=== PATIENT | male | born 1985 | race Caucasian/White ===

== ENCOUNTER 2017-07-07 13:00 | Emergency (ER) | payer SELFPAY ==
[~2017-07-07] VITALS: Ht 172.7 cm; Wt 65.0 kg
[2017-07-07 13:01] VITALS: BP 169/100; PULSE 55; RESP 16; TEMP 97.7; O2SAT 100
--- NOTE | 2017-07-07 14:49 | PD ---
HPI Chief Complaint: Abdominal Pain Time Seen by Provider: 14:21 Travel History International Travel<30 days: Yes Contact w/Intl Traveler<30days: Yes Name of Country Traveled to: [place], [place], [place] Traveled to known affect area: Yes History of Present Illness HPI 31-year-old male presents to the ED for evaluation of intermittent left upper quadrant abdominal pain. Patient can identify no alleviating or exacerbating factors. He states that he is currently asymptomatic. He denies fevers, chills , chest pain, palpitation, shortness of breath, cough, nausea, vomiting, dysuria , hematuria, changes in bowel habits, melena, hematochezia, back pain. He can identify no acute injury to the area. He states that he does a physical job that requires a lot of lifting and stretching. He denies illicit drug use. Endorses occasional alcohol use. He smokes 1 pack per day. No treatment attempt at home. PFSH Social History Tobacco Use: Yes Allergies-Medications (Allergen,Severity, Reaction): Coded Allergies: No Known Allergies (Unverified , 07/07/17) Review of Systems Except as stated in HPI: all other systems reviewed are Neg Physical Exam Narrative GENERAL: Well-nourished, well-developed thin, nontoxic-appearing white male in no acute distress. SKIN: Focused skin assessment warm/dry. HEAD: Normocephalic. EYES: No scleral icterus. No injection or drainage. NECK: Supple, trachea midline. No JVD or lymphadenopathy. CARDIOVASCULAR: Regular rate and rhythm without murmurs, gallops, or rubs. RESPIRATORY: Breath sounds clear and equal bilaterally. No accessory muscle use. GASTROINTESTINAL: Abdomen soft, non-tender, nondistended. No palpable masses. No hepatosplenomegaly. Active bowel sounds. MUSCULOSKELETAL: No cyanosis, or edema. BACK: Nontender without obvious deformity. No CVA tenderness. Data Data Last Documented VS Vital Signs Date Time Temp Pulse Resp B/P (MAP) Pulse Ox O2 Delivery O2 Flow Rate FiO2 07/07/17 13:01 97.7 55 16 169/100 (123) 100 Orders Orders Complete Blood Count With Diff (07/07/17 14:41) Basic Metabolic Panel (Bmp) (07/07/17 14:41) Lipase (07/07/17 14:41) Urinalysis - C+S If Indicated (07/07/17 14:41) Labs Laboratory Tests Test 07/07/17 14:45 White Blood Count 6.4 TH/MM3 Red Blood Count 4.99 MIL/MM3 Hemoglobin 16.1 GM/DL Hematocrit 46.0 % Mean Corpuscular Volume 92.2 FL Mean Corpuscular Hemoglobin 32.3 PG Mean Corpuscular Hemoglobin Concent 35.0 % Red Cell Distribution Width 13.3 % Platelet Count 199 TH/MM3 Mean Platelet Volume 8.1 FL Neutrophils (%) (Auto) 56.2 % Lymphocytes (%) (Auto) 32.0 % Monocytes (%) (Auto) 8.8 % Eosinophils (%) (Auto) 2.6 % Basophils (%) (Auto) 0.4 % Neutrophils # (Auto) 3.6 TH/MM3 Lymphocytes # (Auto) 2.0 TH/MM3 Monocytes # (Auto) 0.6 TH/MM3 Eosinophils # (Auto) 0.2 TH/MM3 Basophils # (Auto) 0.0 TH/MM3 CBC Comment DIFF FINAL Differential Comment Urine Color COLORLESS Urine Turbidity CLEAR Urine pH 6.0 Urine Specific [place] 1.003 Urine Protein NEG mg/dL Urine Glucose (UA) NEG mg/dL Urine Ketones NEG mg/dL Urine Occult Blood NEG Urine Nitrite NEG Urine Bilirubin NEG Urine Urobilinogen LESS THAN 2.0 MG/DL Urine Leukocyte Esterase NEG Urine RBC 1 /hpf Urine WBC LESS THAN 1 /hpf Microscopic Urinalysis Comment CULT NOT INDICATED Blood Urea Nitrogen 8 MG/DL Creatinine 1.09 MG/DL Random Glucose 82 MG/DL Calcium Level 9.1 MG/DL Sodium Level 142 MEQ/L Potassium Level 4.0 MEQ/L Chloride Level 106 MEQ/L Carbon Dioxide Level 33.2 MEQ/L Anion Gap 3 MEQ/L Estimat Glomerular Filtration Rate 79 ML/MIN Lipase 99 U/L [facility] Medical Decision Making Medical Screen Exam Complete: Yes Emergency Medical Condition: Yes Differential Diagnosis Musculoskeletal pain versus pancreatitis versus nephroureterolithiasis versus other Narrative Course 31-year-old male presents to the ED for evaluation of intermittent left upper quadrant abdominal pain. Patient is asymptomatic on presentation. Last episode 2 days ago. He identified no alleviating or exacerbating factors for this pain. No other symptoms. Vitals reviewed. On exam the patient is thin, nontoxic appearing , no pain elicited with deep palpation of the left upper quadrant. CVA tenderness. No abnormalities of CBC, CMP or UA. Vital information to follow up with his clinic. He is stable and discharged home. Diagnosis Primary Impression: Abdominal pain, chronic, left upper quadrant Referrals: [facility] Additional Instructions: Rest, hydrate. Return to normal, gentle activity as tolerated. Follow-up with the [place] [facility] to establish primary care. Return to the ED for any urgent or emergent medical condition. Disposition: 01 DISCHARGE HOME Condition: Stable Serina Torres Jul 07, 2017 14:49
[2017-07-07 15:14] LABS: AUTOMATED NEUTROPHIL # 3.6 TH/MM3 (1.8-7.7); BASOPHIL % 0.4 % (0.0-2.0); EOSINOPHIL # 0.2 TH/MM3 (0-0.4); EOSINOPHIL % 2.6 % (0.0-4.0); HEMOGLOBIN 16.1 GM/DL (13.0-17.0); MEAN CELL VOLUME 92.2 FL (80.0-100.0); MEAN CORPUSCULAR HEMOGLOBIN 32.3 PG (27.0-34.0); MEAN PLATELET VOLUME 8.1 FL (7.0-11.0); MONO % 8.8 % (0.0-8.0); MONOCYTE # 0.6 TH/MM3 (0-0.9); NEUT % 56.2 % (16.0-70.0); PLATELET COUNT 199 TH/MM3 (150-450); RED BLOOD COUNT 4.99 MIL/MM3 (4.50-5.90); RED CELL DISTRIBUTION WIDTH 13.3 % (11.6-17.2); WHITE BLOOD COUNT 6.4 TH/MM3 (4.0-11.0)
[2017-07-07 15:20] LABS: BILIRUBIN, URINE NEG (NEG); BLOOD, URINE NEG (NEG); GLUCOSE,URINE NEG (NEG); KETONE, URINE NEG (NEG); NITRITE,URINE NEG (NEG); URINE COLOR COLORLESS (YELLW/STRAW); URINE LEUKOCYTE ESTERASE NEG (NEG)
[2017-07-07 15:27] LABS: BICARBONATE 33.2 MEQ/L (21.0-32.0); CALCIUM 9.1 MG/DL (8.5-10.1); CREATININE 1.09 MG/DL (0.60-1.30)
== END 2017-07-07 15:51 | disposition home or self-care (01) ==
LOC: NEPD 13:00
DX: R10.12 Left upper quadrant pain (principal); F17.200 Nicotine dependence, unspecified, uncomplicated
CPT/HCPCS: 80048; 81001; 83690; 85025; 99283

== ENCOUNTER 2017-08-07 05:21 | Emergency (ER) | payer SELFPAY ==
[~2017-08-07] VITALS: Ht 172.7 cm; Wt 60.0 kg
[2017-08-07 05:27] VITALS: BP 136/72; PULSE 140; RESP 16; TEMP 100.4; O2SAT 96
[2017-08-07] MEDS ORDERED: cefTRIAXone INJ 2,000 MG in SODIUM CHLORIDE 0.9% INJ 100 ML IV ONE (05:45)
[2017-08-07] MEDS ORDERED: DEXAMETHASONE SOD PHOS 4 MG/ML VIAL IV PUSH ONE (05:45)
[2017-08-07] MEDS ORDERED: SODIUM CHLOR 0.9% 1000 ML INJ 1,000 ML IV ONE ×2 (05:45→06:15)
[2017-08-07 05:59] VITALS: RESP 20
[2017-08-07 06:05] LABS: AUTOMATED NEUTROPHIL # 19.7 TH/MM3 (1.8-7.7); BASOPHIL # 0.1 TH/MM3 (0-0.2); BASOPHIL % 0.2 % (0.0-2.0); EOSINOPHIL # 0.1 TH/MM3 (0-0.4); EOSINOPHIL % 0.4 % (0.0-4.0); HEMATOCRIT 45.4 % (39.0-51.0); LYMPH % 7.1 % (9.0-44.0); LYMPHOCYTE # 1.7 TH/MM3 (1.0-4.8); MEAN CELL VOLUME 87.1 FL (80.0-100.0); MEAN CORPUSCULAR HEMOGLOBIN 30.7 PG (27.0-34.0); MEAN CORPUSCULAR HGB CONC 35.2 % (32.0-36.0); MEAN PLATELET VOLUME 7.3 FL (7.0-11.0); MONO % 8.4 % (0.0-8.0); NEUT % 83.9 % (16.0-70.0); PLATELET COUNT 316 TH/MM3 (150-450); RED BLOOD COUNT 5.21 MIL/MM3 (4.50-5.90); RED CELL DISTRIBUTION WIDTH 12.1 % (11.6-17.2); WHITE BLOOD COUNT 23.5 TH/MM3 (4.0-11.0)
[2017-08-07 06:11] LABS: INTERNATIONAL NORMALIZED RATIO 1.3 RATIO; PROTHROMBIN TIME - PATIENT 12.8 SEC (9.8-11.6)
[2017-08-07 06:30] LABS: MONOSCREEN NEG (NEG)
[2017-08-07 06:37] LABS: ALT (GPT) 17 U/L (12-78)
[2017-08-07 06:39] LABS: ALKALINE PHOSPHATASE 87 U/L (45-117); TOTAL BILIRUBIN ADULT 0.8 MG/DL (0.2-1.0); TOTAL PROTEIN 8.7 GM/DL (6.4-8.2)
[2017-08-07 06:44] LABS: ALBUMIN 3.6 GM/DL (3.4-5.0); AST (GOT) 19 U/L (15-37); BICARBONATE 29.5 MEQ/L (21.0-32.0); BLOOD UREA NITROGEN 17 MG/DL (7-18); CALCIUM 9.6 MG/DL (8.5-10.1); CHLORIDE 98 MEQ/L (98-107); CREATININE 1.16 MG/DL (0.60-1.30); GLOMERULAR FILTRATION RATE 73 ML/MIN (>89); GLUCOSE,RANDOM 123 MG/DL (74-106); MAGNESIUM 2.2 MG/DL (1.5-2.5); SODIUM (NA) 137 MEQ/L (136-145)
--- NOTE | 2017-08-07 07:04 | PD ---
HPI Chief Complaint: ENT Complaint Time Seen by Provider: 05:37 Travel History International Travel<30 days: No Contact w/Intl Traveler<30days: No Traveled to known affect area: No History of Present Illness HPI The patient is a 31 year old male who presents to the [facility] emergency department with a history of a sore throat that he reports began 3 days ago. The patient reports that the sore throat became much worse than felt like his throat with closing up on yesterday. He reports that he has had a fever with a T-max of 101. He reports that he has difficulty swallowing solids an liquids. The patient reports that he took Robitussin without relief. He reports having congestion in the posterior throat, however otherwise no chest congestion, cough other than with throat clearing, nasal congestion or rhinorrhea. He reports that he has had problems with tonsillitis in the past. On review of systems otherwise, the patient denies having any chest pain, shortness of breath , abdominal pain, vomiting, diarrhea, urinary symptoms, or neurologic symptoms. Patient reports having anterior neck pain with swelling of the glans of the left side of the neck. [facility] Past Medical History Narrative Medical The patient's past medical history as reportedly none. Medical History: Denies Significant Hx Past Surgical History Surgical History: No Previous Surgery Social History Alcohol Use: Yes (Occasionally) Tobacco Use: Yes (One half pack per day) Substance Use: No Allergies-Medications (Allergen,Severity, Reaction): Coded Allergies: No Known Allergies (Unverified , 08/07/17) Reported Meds & Prescriptions Reported Meds & Active Scripts Active No Active Prescriptions or Reported Medications Review of Systems Except as stated in HPI: all other systems reviewed are Neg General / Constitutional: Positive: Fever Eyes: No: Visual changes HENT: Positive: Sore Throat, Congestion, Neck Pain (Anterior left neck pain), No: Headaches Cardiovascular: No: Chest Pain or Discomfort Respiratory: No: Shortness of Breath Gastrointestinal: Positive: Loss of Appetite, No: Nausea, Vomiting, Diarrhea, Abdominal Pain Genitourinary: No: Dysuria Musculoskeletal: No: Pain Skin: No Rash Neurologic: No: Weakness, Focal Abnormalities, Change in Mentation, Slurred Speech, Sensory Disturbance Psychiatric: No: Depression Endocrine: No: Polydipsia Hematologic/Lymphatic: No: Easy Bruising Physical Exam Narrative General: The patient is a well-developed well-nourished male in no acute distress. Head and Neck exam: Head is normocephalic atraumatic. Eyes: EOMI, pupils are equal round and reactive to light. Nose: Midline septum with pink mucous membranes Mouth: Dentition unremarkable. Moist mucus membranes. Posterior oropharynx is erythematous with tonsillar hypertrophy a.m. palatal petechiae noted. Left tonsil's greater than the right on examination in size. Uvula midline. Airway patent. Neck: The patient has left-sided anterior cervical lymphadenopathy greater than the right on examination. The patient's lymph node on the left palpates to be approximately 2-3 cm. No nuchal rigidity. No thyromegaly. Cardiovascular: Sinus tachycardia in the low 100 without murmurs, gallops, or rubs. No pulse deficit to the extremities on simultaneous auscultation in palpation of his radial artery. Lungs: Clear to auscultation bilaterally. No wheezes, rhonchi, or rales. Abdomen: Soft, without tenderness to palpation in all 4 quadrants of the abdomen. No guarding, rebound, or rigidity. Normal bowel sounds are audible. No tenderness on palpation at McBurney's point. Extremities: No clubbing, cyanosis, or edema. 2+ pulses in all 4 extremities. No calf tenderness on palpation. Neurologic Exam: Grossly nonfocal. Skin Exam: No rash noted. Intact skin that is warm and dry. Data Data Last Documented VS Vital Signs Date Time Temp Pulse Resp B/P (MAP) Pulse Ox O2 Delivery O2 Flow Rate FiO2 08/07/17 05:59 20 08/07/17 05:27 100.4 140 96 Orders Orders Strep Culture (Group A) (08/07/17 05:35) Group A Rapid Strep Screen (08/07/17 05:35) Complete Blood Count With Diff (08/07/17 05:44) Comprehensive Metabolic Panel (08/07/17 05:44) Prothrombin Time / Inr (Pt) (08/07/17 05:44) Act Partial Throm Time (Ptt) (08/07/17 05:44) Magnesium (Mg) (08/07/17 05:44) Monoscreen (08/07/17 05:44) Iv Access Insert/Monitor (08/07/17 05:44) Ecg Monitoring (08/07/17 05:44) Oximetry (08/07/17 05:44) Sodium Chlor 0.9% 1000 Ml Inj (Ns 1000 M (08/07/17 05:45) Ceftriaxone Inj (Rocephin Inj) (08/07/17 05:45) Dexamethasone Inj (Decadron Inj) (08/07/17 05:45) Ct Soft Tiss Neck W Iv Cont (08/07/17 05:52) Sodium Chlor 0.9% 1000 Ml Inj (Ns 1000 M (08/07/17 06:15) Iohexol 350 Inj (Omnipaque 350 Inj) (08/07/17 07:13) Labs Laboratory Tests Test 08/07/17 05:50 White Blood Count 23.5 TH/MM3 Red Blood Count 5.21 MIL/MM3 Hemoglobin 16.0 GM/DL Hematocrit 45.4 % Mean Corpuscular Volume 87.1 FL Mean Corpuscular Hemoglobin 30.7 PG Mean Corpuscular Hemoglobin Concent 35.2 % Red Cell Distribution Width 12.1 % Platelet Count 316 TH/MM3 Mean Platelet Volume 7.3 FL Neutrophils (%) (Auto) 83.9 % Lymphocytes (%) (Auto) 7.1 % Monocytes (%) (Auto) 8.4 % Eosinophils (%) (Auto) 0.4 % Basophils (%) (Auto) 0.2 % Neutrophils # (Auto) 19.7 TH/MM3 Lymphocytes # (Auto) 1.7 TH/MM3 Monocytes # (Auto) 2.0 TH/MM3 Eosinophils # (Auto) 0.1 TH/MM3 Basophils # (Auto) 0.1 TH/MM3 CBC Comment DIFF FINAL Differential Comment Prothrombin Time 12.8 SEC Prothromb Time International Ratio 1.3 RATIO Activated Partial Thromboplast Time 29.9 SEC Blood Urea Nitrogen 17 MG/DL Creatinine 1.16 MG/DL Random Glucose 123 MG/DL Total Protein 8.7 GM/DL Albumin 3.6 GM/DL Calcium Level 9.6 MG/DL Magnesium Level 2.2 MG/DL Alkaline Phosphatase 87 U/L Aspartate Amino Transf (AST/SGOT) 19 U/L Alanine Aminotransferase (ALT/SGPT) 17 U/L Total Bilirubin 0.8 MG/DL Sodium Level 137 MEQ/L Potassium Level 3.9 MEQ/L Chloride Level 98 MEQ/L Carbon Dioxide Level 29.5 MEQ/L Anion Gap 10 MEQ/L Estimat Glomerular Filtration Rate 73 ML/MIN Monoscreen NEG MDM Medical Decision Making Medical Screen Exam Complete: Yes Emergency Medical Condition: Yes Medical Record Reviewed: Yes Differential Diagnosis Strep pharyngitis, versus mononucleosis, versus peritonsillar abscess, versus lymphadenitis Narrative Course During the course of the patient's emergency department visit, the patient's history, examination, and differential diagnosis were reviewed with the patient. The patient was placed on a cafeteria monitor with oximetry and frequent blood pressure monitoring. The patient had iv access obtained and blood work sent for analysis. CT scan of the soft tissues of the neck with done. The patient has noted to be tachycardic which I suspect as related to an elevated temperature at 100.4, in addition to dehydration as the patient reports that he has had poor p.o. intake of fluids. He reports that he has afraid to swallow as he feels like he will choke. The patient's was initially provided normal saline 2 L IV fluid bolus. The patient has given Rocephin 1 g IV, Decadron 4 mg IV. The patient laboratory studies were reviewed and remarkable for White count of 23.5, hemoglobin 16, platelets 316 with 83.9 neutrophils, CMP as remarkable for a glucose of 123, total protein 8.7, PT 12.8, PTT 29.9, mono screen as negative. CT scan of the soft tissues of the neck as pending at the conclusion of my shift, therefore the patient's case will be checked out to the oncoming emergency physician for final disposition. Diagnosis Primary Impression: Acute pharyngitis Qualified Codes: J02.0 - Streptococcal pharyngitis Additional Impressions: Strep pharyngitis Dehydration Scripts No Active Prescriptions or Reported Charity Warren MD Aug 07, 2017 07:04
[2017-08-07] MEDS ORDERED: IOHEXOL 350 MG/ML 10 ML VIAL (for RAD DIAG) IVCONTRAST ONE (07:13)
--- NOTE | 2017-08-07 07:27 | RADRPT ---
EXAM DATE/TIME: 08/07/2017 07:01 [place] COMPARISON: No previous studies available for comparison. INDICATIONS : Sore throat, fever and swollen lymph nodes. IV CONTRAST: 68 cc Omnipaque 350 (iohexol) IV RADIATION DOSE: 15.94 CTDIvol (mGy) MEDICAL HISTORY : None SURGICAL HISTORY : None. ENCOUNTER: Initial ACUITY: 1 day PAIN SCALE: 5/10 LOCATION: Throat TECHNIQUE: Volumetric scanning of the neck was performed. Using automated exposure control and adjustment of th e mA and/or kV according to patient size, radiation dose was kept as low as reasonably achievable to obtain optimal diagnostic quality images. DICOM format image data is available electronically for r eview and comparison. FINDINGS: NASOPHARYNX: The nasopharyngeal airway has a normal configuration. No mucosal thickening or mass is seen. OROPHARYNX: Large area of low attenuation/phlegmon in the left peritonsillar region measuring approximately 3.4 x 2.9 cm. Prominent enlarged left neck lymph node seen just medial and anterior to the left sternoclei domastoid musculature including 2 larger ones measuring 2.4 x 1.7 cm and 1.8 x 1.7 cm. Extensive skin thickening and reactive changes along the left neck. No drainable fluid collection/abscess. This mensah s create some mass effect upon the larynx which is shifted to the right but no airway compromise.. LARYNX: The supraglottic, glottic, and infraglottic structures are intact. PARAPHARYNGEAL: The parapharyngeal space is intact. SALIVARY GLANDS: The parotid and submandibular glands are intact. LYMPH NODES: No enlarged or necrotic-appearing nodes. THYROID: Homogeneous enhancement without evidence of nodule. BONES: Unremarkable. CONCLUSION: 1. Large infectious phlegmon reaction in the left peritonsillar region without drainable fluid collec tion/abscess. 2. Extensive inflammatory changes with skin thickening and enlarged adenopathy in the left neck as de scribed above. Devaughn Cortes MD on August 07, 2017 at 7:20 Board Certified Radiologist. This report was verified electronically.
[2017-08-07 07:48] VITALS: BP 131/78; PULSE 124; RESP 17; O2SAT 97
[2017-08-07] MEDS ORDERED: MEDR4PAK PO (07:56)
[2017-08-07] MEDS ORDERED: AUGM875T3 PO (07:56)
--- NOTE | 2017-08-07 07:56 | PD ---
Physical Exam Narrative focal evaluation: left anterior cervical lad present, left tonsillar enlargement, patient is tolerating his secretions Data Data Last Documented VS Vital Signs Date Time Temp Pulse Resp B/P (MAP) Pulse Ox O2 Delivery O2 Flow Rate FiO2 08/07/17 07:48 124 17 131/78 (95) 97 Room Air 08/07/17 05:27 100.4 Orders Orders Strep Culture (Group A) (08/07/17 05:35) Group A Rapid Strep Screen (08/07/17 05:35) Complete Blood Count With Diff (08/07/17 05:44) Comprehensive Metabolic Panel (08/07/17 05:44) Prothrombin Time / Inr (Pt) (08/07/17 05:44) Act Partial Throm Time (Ptt) (08/07/17 05:44) Magnesium (Mg) (08/07/17 05:44) Monoscreen (08/07/17 05:44) Iv Access Insert/Monitor (08/07/17 05:44) Ecg Monitoring (08/07/17 05:44) Oximetry (08/07/17 05:44) Sodium Chlor 0.9% 1000 Ml Inj (Ns 1000 M (08/07/17 05:45) Ceftriaxone Inj (Rocephin Inj) (08/07/17 05:45) Dexamethasone Inj (Decadron Inj) (08/07/17 05:45) Ct Soft Tiss Neck W Iv Cont (08/07/17 05:52) Sodium Chlor 0.9% 1000 Ml Inj (Ns 1000 M (08/07/17 06:15) Iohexol 350 Inj (Omnipaque 350 Inj) (08/07/17 07:13) Labs Laboratory Tests Test 08/07/17 05:50 White Blood Count 23.5 TH/MM3 Red Blood Count 5.21 MIL/MM3 Hemoglobin 16.0 GM/DL Hematocrit 45.4 % Mean Corpuscular Volume 87.1 FL Mean Corpuscular Hemoglobin 30.7 PG Mean Corpuscular Hemoglobin Concent 35.2 % Red Cell Distribution Width 12.1 % Platelet Count 316 TH/MM3 Mean Platelet Volume 7.3 FL Neutrophils (%) (Auto) 83.9 % Lymphocytes (%) (Auto) 7.1 % Monocytes (%) (Auto) 8.4 % Eosinophils (%) (Auto) 0.4 % Basophils (%) (Auto) 0.2 % Neutrophils # (Auto) 19.7 TH/MM3 Lymphocytes # (Auto) 1.7 TH/MM3 Monocytes # (Auto) 2.0 TH/MM3 Eosinophils # (Auto) 0.1 TH/MM3 Basophils # (Auto) 0.1 TH/MM3 CBC Comment DIFF FINAL Differential Comment Prothrombin Time 12.8 SEC Prothromb Time International Ratio 1.3 RATIO Activated Partial Thromboplast Time 29.9 SEC Blood Urea Nitrogen 17 MG/DL Creatinine 1.16 MG/DL Random Glucose 123 MG/DL Total Protein 8.7 GM/DL Albumin 3.6 GM/DL Calcium Level 9.6 MG/DL Magnesium Level 2.2 MG/DL Alkaline Phosphatase 87 U/L Aspartate Amino Transf (AST/SGOT) 19 U/L Alanine Aminotransferase (ALT/SGPT) 17 U/L Total Bilirubin 0.8 MG/DL Sodium Level 137 MEQ/L Potassium Level 3.9 MEQ/L Chloride Level 98 MEQ/L Carbon Dioxide Level 29.5 MEQ/L Anion Gap 10 MEQ/L Estimat Glomerular Filtration Rate 73 ML/MIN Monoscreen NEG MDM Medical Record Reviewed: Yes Supervised Visit with AFTAB: No Diagnosis Primary Impression: Acute pharyngitis Qualified Codes: J02.0 - Streptococcal pharyngitis Additional Impressions: Strep pharyngitis Dehydration Patient Instructions: General Instructions, Strep Throat (ED) Scripts Amoxicillin-Clavulanate (Augmentin) 875-125 Mg Tab 1 TAB PO BID for Infection for 10 Days, #20 TAB 0 Refills Prov: Deandre Rush MD 08/07/17 Methylprednisolone Dosepak (Medrol Dosepak) 4 Mg Dspk 4 MG PO DIRECTED, #1 DSPK 0 Refills Per Pharmacist direction Prov: Deandre Rush MD 08/07/17 Disposition: DISCHARGE HOME Condition: Stable Deandre Rush MD Aug 07, 2017 07:56
== END 2017-08-07 08:11 | disposition home or self-care (01) ==
LOC: NEPE 05:21
DX: J02.0 Streptococcal pharyngitis (principal); E86.0 Dehydration; R00.0 Tachycardia, unspecified; M54.2 Cervicalgia; F17.200 Nicotine dependence, unspecified, uncomplicated
CPT/HCPCS: 70491; 80053; 83735; 85025; 85610; 85730; 86308; 87081; 87880; 96361; 96365; 96375; 99285; J0696; J1100; J7030; Q9967

== ENCOUNTER 2017-11-26 13:26 | Emergency (ER) | payer SELFPAY ==
[2017-11-26] MEDS: MORPHINE SULFATE 4 MG/ML INJ IV PUSH ×2 (14:11→15:25)
[2017-11-26] MEDS: SODIUM CHLORID 0.9% 500 ML INJ 500 ML IV (14:11)
[2017-11-26] MEDS: ONDANSETRON HCL 4 MG/2 ML VIAL IV (14:11)
== END 2017-11-26 16:49 | disposition short-term general hospital (02) ==
LOC: NEPD 16:49
DX: T23.262A Burn of second degree of back of left hand, initial encounter (principal); X10.2XXA Contact with fats and cooking oils, initial encounter
CPT/HCPCS: 96361; 96374; 96375; 99285-25